=== PATIENT | female | born 1990 | race American Indian/Alaskan Native ===

== ENCOUNTER 2020-07-21 18:45 | Emergency (ER) | payer SELFPAY | END 2020-07-21 18:50 | disposition left against medical advice (07) | LOC: ED 18:45 | DX: R51.9 Headache, unspecified (principal); Z53.21 Procedure and treatment not carried out due to patient leaving prior to being seen by health care provider ==

== ENCOUNTER 2020-08-02 21:54 | Emergency (ER) | payer MEDICAID | END 2020-08-02 21:59 | disposition left against medical advice (07) | LOC: ED 21:54 ==